=== PATIENT | female | born 1990 | race Caucasian/White ===

== ENCOUNTER 2024-11-16 17:28 | Emergency (ER) | payer OTHER, SELFPAY ==
--- NOTE | ~2024-11-16 | XR_ITS ---
XR tibia fibula LT 2V Ordering provider: Mita Gunter NP History: . FALL ON HYPEREXTENDED FOOT, GENERALIZED LATERAL PAIN . Comparison: None. FINDINGS: BONES: No acute fracture or dislocation. JOINT SPACES: Normal. SOFT TISSUES: Normal. Calcaneus spur. IMPRESSION: No acute osseous abnormality left leg. Reviewed, dictated and finalized at location A.
--- OUTSIDE RECORDS SUMMARY | 2024-11-16 17:30 | XMS_ITS | Referral Summary ---
Author Organization [facility] Virtual Care Address [address] [place] [id number] Phone Care Team Providers Care Telecommunications Administrator Name Role Phone Nuris Holguin JONAH Primary Care Provider +1- [phone] Encounters Date Type Department Care Team Description 09/02/2024 8:17 AM MILLER HELPER - 09/02/2024 9:47 AM [facility] Emergency [facility] Emergency Department 1 [place] [address] Dm Madden MD Renal colic on left side (Primary Dx) Discharge Disposition: Discharge to home or self care from Last 3 Months Allergies Active Allergy Reactions Criticality Noted Date Comments Amoxicillin Other (See comments) Reaction: red bumps, Hydrocodone Nausea only Reaction: nausea, Sulfanilamide Hives Reaction: Hives, Medications methylPREDNISolone (MEDROL DOSEPACK) 4 mg tablet Take as directed on package. 21 tablet 7 Active ondansetron ODT (ZOFRAN-ODT) 8 mg disintegrating tablet Take 1 tablet (8 mg total) by mouth every 8 (eight) hours as needed for nausea or vomiting 30 tablet 4 Active Active Problems Problem Noted Date Diagnosed Date Asthma 01/19/2014 Overview (12/08/2016): Asthma Immunizations Immunization Administration Dates Next Due DTaP 11/22/1994, 1,05/29/1990,03/14 HPV, Quadrivalent 03/14/2009,06/05/2007,03/20/20 07 Hep A, Adult 09/13/2011,01/20/2011 Hep B Vaccine 07/23/1998,12/25/1997,11/26/1997 Hib (HbOC) 03/05/1991,12/25/1990,08/21/1990 IPV 11/22/1994, 1,03/14/1990,01/11 MMR 11/22/1994,03/05/1991 Meningococcal Polysaccharide (Menomune) 03/05/2009 Td, adsorbed 12/12/1999 Tdap 03/20/2007 Varicella 03/18/2011 Social History Tobacco Use Types Packs/Day Years Used Date Smoking Tobacco: Never Smokeless Tobacco: Never Alcohol Use Standard Drinks/Week Comments Yes 0 (1 standard drink = 0.6 oz pur e alcohol) Personal Safety Answer Date Recorded Have you ever been in or are you currently in a harmful physical or emotional relationship or is someone making you feel afraid or unsafe? Denies 09/02/2024 Comments Unknown Sex and Gender Information Value Date Recorded Sex Assigned at Not on file Legal Sex Female 4:14 AM MILLER HELPER Gender Identity Not on file Sexual Orientation Not on file Last Filed Vital Signs Vital Sign Reading Time Taken Comments Blood Pressure 116/82 09/02/2024 9:30 AM MILLER HELPER Pulse 79 09/02/2024 9:30 AM MILLER HELPER Temperature 37.2 C (99 F) 09/02/2024 12:33 AM MILLER HELPER Respiratory Rate 18 09/02/2024 12:33 AM MILLER HELPER Oxygen Saturation 95% 09/02/2024 9:30 AM MILLER HELPER Inhaled Oxygen Concentration - - Weight 99.8 kg (220 lb) 09/02/2024 12:33 AM MILLER HELPER Height 170.2 cm (5' 7 ) 09/02/2024 12:33 AM MILLER HELPER Body Mass Index 34.46 09/02/2024 12:33 AM MILLER HELPER Plan of Treatment Not on file Procedures Procedure Name Priority Date/Time Associated Diagnosis Comments POCT HCG, URINE Routine 09/02/2024 1:26 AM MILLER HELPER EGFR STAT 09/02/2024 12:41 AM MILLER HELPER URINALYSIS, MICROSCOPIC ONLY STAT 09/02/2024 12:41 AM MILLER HELPER DIFFERENTIAL AUTO STAT 09/02/2024 12: 41 AM MILLER HELPER LIPASE STAT 09/02/2024 12:41 AM MILLER HELPER COMPREHENSIVE METABOLIC PANEL STAT 09/02/2024 12:41 AM MILLER HELPER CBC WITH AUTO DIFFERENTIAL STAT 09/02/2024 12:41 AM MILLER HELPER URINALYSIS AND REFLEX TO MICROSCOPIC AND CULTURE STAT 09/02/2024 12:41 AM MILLER HELPER from Last 3 Months Results * POCT hCG, urine (09/02/2024 1:26 AM MILLER HELPER) HCG, ur, POC Negative Negative Lot Number [id number] QC Backgroud Clear Acceptable QC Control Line Acceptable Urine 09/02/2024 1:26 AM MILLER HELPER Biju Mccormack MD POINT OF CARE TEST ORDERABLES Final Result * eGFR (09/02/2024 12:41 AM MILLER HELPER) eGFR >90 >=60 mL/min/1. 73 m2 Comment: Interpretive Data Reference Interval Normal >/= 90 mL/min/1.73m2 Mildly decreased* 60 - 89 mL/min/1.73m2 Mildly to moderately decreased 45 - 59 mL/min/1.73m2 Moderately to severely decreased 30 - 44 mL/min/1.73m2 Severely decreased 15 - 29 mL/min/1.73m2 Kidney Failure < 15 mL/min/1.73m2 *Relative to young adult level Estimated glomerular filtration rate is determined by the 2020 CKD-EPI equation recommended by the National Kidney Foundation (A Unifying Approach to GFR Estimation: Recommendations of the NKF-ASK Task Force on Reassessing the Inclusion of Race in Diagnosing Kidney Disease, JASN 2020). The CKD-EPI equation should not be used for patients with unstable renal function and has not been validated in children and those over 70. Current interpretive data was last reviewed 2021. Blood 09/02/2024 12:4 1 AM MILLER HELPER 09/02/2024 12:50 AM MILLER HELPER us Biju Mccormack MD LAB BLOOD ORDERABLES Final Re sult [facility] ([place]) 1 [facility] [place] [address] * (ABNORMAL) Differential, auto (09/02/2024 12:41 AM MILLER HELPER) Neutrophil abs 4.8 1.5 - 6.5 K/cumm Imm gran abs 0.0 0.0 - 0.1 K/cumm [facility] ([place]) Lymphocyte abs 4.8(H) 0.8 - 3.3 K/cumm [facility] ([place]) Monocyte abs 0.8 0.2 - 0.8 K/cumm [facility] ([place]) Eosinophil abs 0.2 0.0 - 0.5 K/cumm [facility] ([place]) Basophil abs 0.1 0.0 - 0.1 K/cumm [facility] ([place]) Neutrophil pct 44.5 % [facility] ([place]) Comment: Interpretive Data Percent cell count reference ranges are not reported, since discordance with absolute values may lead to misinterpretation of CBC data. Current Interpretive Data was last revised on 2017. Imm gran pct 0.3 % [facility] ([place]) Comment: Interpretive Data Percent cell count reference ranges are not reported, since discordance with absolute values may lead to misinterpretation of CBC data. Current Interpretive Data was last revised on 2017. Lymphocyte pct 44.6 % [facility] ([place]) Comment: Interpretive Data Percent cell count reference ranges are not reported, since discordance with absolute values may lead to misinterpretation of CBC data. Current Interpretive Data was last revised on 2017. Monocyte pct 7.9 % [facility] ([place]) Comment: Interpretive Data Percent cell count reference ranges are not reported, since discordance with absolute values may lead to misinterpretation of CBC data. Current Interpretive Data was last revised on 2017. Eosinophil pct 2.2 % [facility] ([place]) Comment: Interpretive Data Percent cell count reference ranges are not reported, since discordance with absolute values may lead to misinterpretation of CBC data. Current Interpretive Data was last revised on 2017. Basophil pct 0.5 % [facility] ([place]) Comment: Interpretive Data Percent cell count reference ranges are not reported, since discordance with absolute values may lead to misinterpretation of CBC data. Current Interpretive Data was last revised on 2017. Blood 09/02/2024 12:4 1 AM MILLER HELPER 09/02/2024 12:50 AM MILLER HELPER us Biju Mccormack MD LAB BLOOD ORDERABLES Final Re sult [facility] ([place]) 1 [facility] [place] [address] * (ABNORMAL) Urinalysis reflex to microscopic and culture Urine (09/02/2024 12:41 AM MILLER HELPER) Color, ur Dark-Yellow Clarity, ur Turbid(A) Clear [facility] ([place]) Specific gravity, ur 1.035(H) 1.003 - 1.030 [facility] ([place]) pH, urine 6.0 [facility] ([place]) Comment: Interpretive Data U rine pH is affected by diet, medications, systemic acid-base disturbances, and renal tubular function. pH may affect urinary stone formation. For example, urine pH below 6.0 may help reduce the tendency for calcium phosphate stones and pH greater than 6.0 may reduce the tendency for uric acid stone formation. Source: [facility] Current Interpretive Data was last revised on 2017 Protein, ur ql 1+(A) Negative [facility] ([place]) Glucose, ur ql Negative Negative [facility] ([place]) Ketones, ur Negative Negative [facility] ([place]) Bilirubin, ur 1+(A) Negative [facility] ([place]) Blood, ur 3+(A) Negative [facility] ([place]) Urobilinogen, ur 2.0(A) <2.0 mg/dL [facility] ([place]) Nitrite, ur Positive(A) Negative [facility] ([place]) Leukocyte esterase, ur Negative Negative [facility] ([place]) UA reflex comment Reflex to microscopic UA will be performed. [facility] ([place]) Urine 09/02/2024 12:4 1 AM MILLER HELPER 09/02/2024 1:04 AM MILLER HELPER Biju Mccormack MD LAB MICROBIOLOGY - GENERAL OR DERABLES Final Result Performing Organization Address City/[facility] Co de Phone Number [facility] ([place]) 1 [facility] [place] [address] * (ABNORMAL) CBC with auto differential (09/02/2024 12:41 AM MILLER HELPER) WBC 10.7(H) 3.8 - 9.9 K/cumm Hgb 13.4 11.9 - 15.5 g/dL [facility] ([place]) Hct 40.1 35.6 - 45.5 % [facility] ([place]) Plt 303 150 - 400 K/cumm [facility] ([place]) MPV 11.4 9.1 - 12.3 fL [facility] ([place]) RBC 4.47 3.90 - 5.20 M/cumm [facility] ([place]) MCV 89.7 81.3 - 96.4 fL [facility] ([place]) MCH 30.0 27.1 - 33.3 pg [facility] ([place]) MCHC 33.4 32.3 - 35.7 g/dL [facility] ([place]) RDW CV 12.4 11.1 - 14.9 % [facility] ([place]) RDW SD 40.3 35.7 - 48.1 fL [facility] ([place]) NRBC abs 0.00 0.00 - 0.01 K/cumm [facility] ([place]) Blood 09/02/2024 12:4 1 AM MILLER HELPER 09/02/2024 12:50 AM MILLER HELPER us Biju Mccormack MD LAB BLOOD ORDERABLES Final Re sult Performing Organization Address City/State/[facility] Co de Phone Number [facility] ([place]) 1 [place] [address] * (ABNORMAL) Urinalysis, microscopic only (09/02/2024 12:41 AM MILLER HELPER) WBC, ur 6-10(A) 0 - 5 /HPF RBC, ur >50(A) 0 - 2 /HPF [facility] ([place]) Epithelial cells, squamous, ur 1-5 0 - 5 /HPF [facility] ([place]) Bacteria, ur Trace(A) [facility] ([place]) Mucous, ur Present(A) [facility] ([place]) Culture Reflex Comment Reflex conditions for urine culture (WBC >10) not met. [facility] ([place]) Urine 09/02/2024 12:4 1 AM MILLER HELPER 09/02/2024 1:04 AM MILLER HELPER Biju Mccormack MD LAB URINE ORDERABLES Final Re sult Performing Organization Address [facility] Co de Phone Number [facility] ([place]) [address] [place] [address] * Lipase (09/02/2024 12:41 AM MILLER HELPER) Pathologist [facility] Lipase 46 10 - 99 Units/L Blood 09/02/2024 12:4 1 AM MILLER HELPER 09/02/2024 12:50 AM MILLER HELPER Biju Mccormack MD LAB BLOOD ORDERABLES Final Re sult Performing Organization Address [facility] Co de Phone Number [facility] ([place]) 1 [facility] [place] [address] * (ABNORMAL) Comprehensive metabolic panel (09/02/2024 12:41 AM MILLER HELPER) [facility] Sodium 136 135 - 145 mmol/L Potassium, pl 4.1 3.3 - 4.9 mmol/L [facility] ([place]) Comment:Moderately Hemolyzed Specimen. Results may be affected. Chloride 101 97 - 110 mmol/L [facility] ([place]) CO2 21(L) 22 - 32 mmol/L [facility] ([place]) Anion gap 14 2 - 15 mmol/L [facility] ([place]) BUN 17 6 - 25 mg/dL [facility] ([place]) Creatinine 0.59(L) 0.60 - 1.10 mg/dL [facility] ([place]) Glucose 121 70 - 199 mg/dL [facility] ([place]) Comment: Interpretive Data Fasting glucose >/= 126 mg/dl is diagnostic for diabetes. Fasting is defined as no caloric intake for at least 8 hours. Fasting glucose between 100 mg/dl to 125 mg/dl is diagnostic of prediabetes. In a patient with classic symptoms of hyperglycemia or hyperglycemic crisis, a random glucose >/= 200 mg/dl is diagnostic for diabetes. In the absence of unequivocal hyperglycemia, results should be confirmed by repeat testing. The classification and Diagnosis of Diabetes Diabetes Care 2021; 46: S19-S40. Current interpretive data was last revised 2022. Calcium 9.6 8.5 - 10.3 mg/dL [facility] ([place]) Bilirubin, total <0.2 0.1 - 1.2 mg/dL [facility] ([place]) Protein, pl 7.1 6.5 - 8.5 g/dL [facility] ([place]) Albumin 4.1 3.5 - 5.0 g/dL [facility] ([place]) Alk phos 200(H) 40 - 130 Units/L [facility] ([place]) ALT 37 7 - 45 Units/L [facility] ([place]) Comment: Hemolysis present. Results may be affected. Moderately Hemolyzed Specimen AST 46(H) 10 - 45 Units/L [facility] ([place]) Comment: Hemolysis present. Results may be affected. Moderately Hemolyzed Specimen Blood 09/02/2024 12:4 1 AM MILLER HELPER 09/02/2024 12:50 AM MILLER HELPER us Biju Mccormack MD LAB BLOOD ORDERABLES Final Re sult [facility] ([place]) 1 [facility] Department [place] [address] from Last 3 Months Insurance [facility] [employer] [facility] Care Teams Telecommunications Administrator Relationship Specialty Start Date End Date Nuris Holguin NP PCP - General Internal Medicine 09/02/24
--- OUTSIDE RECORDS SUMMARY | 2024-11-16 17:30 | XMS_ITS | Clinical Summary ---
Author Organization [facility] Virtual Care Address [address] [place] [phone] Phone Care Team Providers Care Body Mechanic Apprentice Name Role Phone Nuris Holguin JONAH Primary Care Provider +1- [phone] Allergies Active Allergy Reactions Criticality Noted Date [...] Diagnosed Date Asthma 01/19/2014 Overview (12/08/2016): Asthma Encounters Date Type Department Care Team Description 09/02/2024 8:17 AM ROLL OUT MANAGER - 09/02/2024 9:47 AM ROLL OUT MANAGER Emergency [facility] Emergency Department 1 [place] [address] Dm Madden MD Renal colic on left side (Primary Dx) Discharge Disposition: Discharge to home or self care from Last 3 Months Immunizations Immunization Administration Dates Next Due DTaP 11/22/1994, 1,05/29/1990,03/14 HPV, Quadrivalent 03/14/2009,06/05/2007,03/20/20 07 Hep A, Adult 09/13/2011,01/20/2011 Hep B Vaccine 07/23/1998,12/25/1997,11/26/1997 Hib (HbOC) 03/05/1991,12/25/1990,08/21/1990 IPV 11/22/1994, 1,03/14/1990,01/11 MMR 11/22/1994,03/05/1991 Meningococcal Polysaccharide (Menomune) 03/05/2009 Td, adsorbed 12/12/1999 Tdap 03/20/2007 Varicella 03/18/2011 Surgical History Surgery Date Site/Laterality Comments OTHER SURGICAL HISTORY 2006 (HAIR TORNIQUET): ISCHEMIC R LABIA MINORA DEBRIDED OTHER SURGICAL HISTORY peritonsillar abscess: drained Medical History Medical History Date Comments Hx Other Medical (HAIR TORNIQUET ) Hx Other Medical 2012 peritonsillar a bscess Family History Medical History Relation Name Comments Coronary artery disease Father Mauricio nary artery disease, premature; Hyperlipidemia Father Hyperlipidemi a; Hypertension Mother Hypertension; Migraines Mother Migraines; Asthma Other Asthma; Alzheimer's disease Paternal Grandfather Alzheimer's Disease; Seizures Sister Seizure disorde r; Relation Name Status Comments Father Mother Other Paternal Grandfather Sister Social History Tobacco Use Types Packs/Day Years [...] on file Legal Sex Female 4:14 AM ROLL OUT MANAGER Gender Identity Not on file Sexual Orientation Not on file Obstetrics History Last Filed Vital Signs Vital Sign Reading Time Taken Comments Blood Pressure 116/82 09/02/2024 9:30 AM ROLL OUT MANAGER Pulse 79 09/02/2024 9:30 AM ROLL OUT MANAGER Temperature 37.2 C (99 F) 09/02/2024 12:33 AM ROLL OUT MANAGER Respiratory Rate 18 09/02/2024 12:33 AM ROLL OUT MANAGER Oxygen Saturation 95% 09/02/2024 9:30 AM ROLL OUT MANAGER Inhaled Oxygen Concentration - - Weight 99.8 kg (220 lb) 09/02/2024 12:33 AM ROLL OUT MANAGER Height 170.2 cm (5' 7 ) 09/02/2024 12:33 AM ROLL OUT MANAGER Body Mass Index 34.46 09/02/2024 12:33 AM ROLL OUT MANAGER Plan of Treatment Health Maintenance Due Date Last Done Comments Cervical Cancer Screening 1989 Depression Screening 1989 Hepatitis C Screening 1989 Regular Well Visit/Exam 18-64 11/21/2007 Varicella Vaccines (2 of 2 - 13+ 2-dose series) 04/15/2011 03/18/2011 Zoster Vaccine (1 of 2) 05/13/2011 Pneumococcal vaccine <65 (2 of 2 - PCV) 05/27/2017 05/27/2016 Covid-19 Vaccine (3 - Pfizer risk series) 05/15/2021 04/17/2021, 03/27/2021 DTaP/Tdap/Td Vaccine (9 - Td or Tdap) 12/19/2030 12/19/2020, 04/30/2019, 09/06/2011, Additional history exists Hepatitis B Screening Completed 07/23/1998 , 12/25/1997, 11/26/1997 HPV Vaccines Completed 03/14/2009, 09/2006, 03/20/2007 Influenza Vaccine Completed 06/01/2024, , 06/13/2020, Additional history exists Procedures Procedure Name Priority Date/Time Associated Diagnosis Comments POCT HCG, URINE Routine 09/02/2024 1:26 AM ROLL OUT MANAGER EGFR STAT 09/02/2024 12:41 AM ROLL OUT MANAGER URINALYSIS, MICROSCOPIC ONLY STAT 09/02/2024 12:41 AM ROLL OUT MANAGER DIFFERENTIAL AUTO STAT 09/02/2024 12: 41 AM ROLL OUT MANAGER LIPASE STAT 09/02/2024 12:41 AM ROLL OUT MANAGER COMPREHENSIVE METABOLIC PANEL STAT 09/02/2024 12:41 AM ROLL OUT MANAGER CBC WITH AUTO DIFFERENTIAL STAT 09/02/2024 12:41 AM ROLL OUT MANAGER URINALYSIS AND REFLEX TO MICROSCOPIC AND CULTURE STAT 09/02/2024 12:41 AM ROLL OUT MANAGER from Last 3 Months Results * POCT hCG, urine (09/02/2024 1:26 AM ROLL OUT MANAGER) HCG, ur, POC Negative Negative Lot Number [id number] QC Backgroud Clear Acceptable QC Control Line Acceptable Urine 09/02/2024 1:26 AM ROLL OUT MANAGER Biju Mccormack MD POINT OF CARE TEST ORDERABLES Final Result * eGFR (09/02/2024 12:41 AM ROLL OUT MANAGER) eGFR >90 >=60 mL/min/1. 73 m2 Comment: [...] reviewed 2021. Blood 09/02/2024 12:4 1 AM ROLL OUT MANAGER 09/02/2024 12:50 AM ROLL OUT MANAGER Biju Mccormack MD LAB BLOOD ORDERABLES Final Re sult [facility] [place]) 1 [facility] Department [place] [address] * (ABNORMAL) Differential, auto (09/02/2024 12:41 AM ROLL OUT MANAGER) Neutrophil abs 4.8 1.5 - 6.5 K/cumm Imm gran abs 0.0 0.0 - 0.1 K/cumm [facility] ([place]) Lymphocyte abs 4.8(H) 0.8 - 3.3 K/cumm [facility] ([place]) Monocyte abs 0.8 0.2 - 0.8 K/cumm [facility] ([place]) Eosinophil abs 0.2 0.0 - 0.5 K/cumm [facility] ([place]) Basophil abs 0.1 0.0 - 0.1 K/cumm [...] on 2017. Blood 09/02/2024 12:4 1 AM ROLL OUT MANAGER 09/02/2024 12:50 AM ROLL OUT MANAGER us Biju Mccormack MD LAB BLOOD ORDERABLES Final Re sult Performing Organization Address City/[facility]/ZIP Co de Phone Number [facility] ([place]) 1 [facility] Department [place] [address] * (ABNORMAL) Urinalysis reflex to microscopic and culture Urine (09/02/2024 12:41 AM ROLL OUT MANAGER) Color, ur Dark-Yellow Clarity, ur Turbid(A) Clear [...] tendency for uric acid stone formation. Source: [facility] [employer] Current Interpretive Data was last revised on [...] [facility] ([place]) Urine 09/02/2024 12:4 1 AM ROLL OUT MANAGER 09/02/2024 1:04 AM ROLL OUT MANAGER us Biju Mccormack MD LAB MICROBIOLOGY - GENERAL OR DERABLES Final Result [facility] ([place]) 1 [facility] Department [place] [address] * (ABNORMAL) CBC with auto differential (09/02/2024 12:41 AM ROLL OUT MANAGER) Pathologist [facility] WBC 10.7(H) 3.8 - 9.9 K/cumm Hgb [...] [facility] ([place]) Blood 09/02/2024 12:4 1 AM ROLL OUT MANAGER 09/02/2024 12:50 AM ROLL OUT MANAGER us Biju Mccormack MD LAB BLOOD ORDERABLES Final Re sult [facility] ([place]) 1 [facility] Department [place] [address] * (ABNORMAL) Urinalysis, microscopic only (09/02/2024 12:41 AM ROLL OUT MANAGER) [facility] WBC, ur 6-10(A) 0 - 5 /HPF RBC, ur >50(A) 0 - 2 /HPF [facility] ([place]) Epithelial cells, squamous, ur 1-5 0 - 5 /HPF [facility] ([place]) Bacteria, ur Trace(A) [facility] ([place]) Mucous, ur Present(A) [facility] ([place]) Culture Reflex Comment Reflex conditions for urine culture (WBC >10) not met. [facility] ([place]) Urine 09/02/2024 12:4 1 AM ROLL OUT MANAGER 09/02/2024 1:04 AM ROLL OUT MANAGER Biju Mccormack MD LAB URINE ORDERABLES Final Re sult Performing Organization Address [facility] Co de Phone Number [facility] ([place]) 1 [facility] [place] [address] * Lipase (09/02/2024 12:41 AM ROLL OUT MANAGER) Pathologist [facility] Lipase 46 10 - 99 Units/L Blood 09/02/2024 12:4 1 AM ROLL OUT MANAGER 09/02/2024 12:50 AM ROLL OUT MANAGER Biju Mccormack MD LAB BLOOD ORDERABLES Final Re sult Performing Organization Address [facility] de Phone Number [facility] ([place]) 1 [facility] [employer] [place] [address] * (ABNORMAL) Comprehensive metabolic panel (09/02/2024 12:41 AM ROLL OUT MANAGER) Sodium 136 135 - 145 mmol/L Potassium, pl 4.1 3.3 - 4.9 mmol/L [facility] ([place]) Comment:Moderately Hemolyzed Specimen. Results may be affected. Chloride 101 97 - 110 mmol/L [facility] ([place]) CO2 21(L) 22 - 32 mmol/L [facility] ([place]) Anion gap 14 2 - 15 mmol/L [facility] ([place]) BUN 17 6 - 25 mg/dL [facility] ([place]) Creatinine 0.59(L) 0.60 - 1.10 mg/dL [facility] ([place]) Glucose 121 70 - 199 mg/dL [facility] ([place]) Comment: Interpretive Data Fasting glucose >/= [...] Hemolyzed Specimen Blood 09/02/2024 12:4 1 AM ROLL OUT MANAGER 09/02/2024 12:50 AM ROLL OUT MANAGER us Biju Mccormack MD LAB BLOOD ORDERABLES Final Re sult [facility] ([place]) 1 [facility] Department [place] [address] from Last 3 Months Insurance [facility] [employer] [facility] Care Teams Body Mechanic Apprentice Relationship Specialty Start Date End Date Nuris Holguin NP PCP - General Internal Medicine 09/02/24
--- OUTSIDE RECORDS SUMMARY | 2024-11-16 17:30 | XMS_ITS | Clinical Summary ---
Author Organization [facility] Address [address] [place]: Epic Prelude ADT HENRY GUZMAN [id number] Care Team Providers Care Falafel Cart Cook Name Role Phone Unavailable Primary Care Provider Unavailabl e Allergies No known active allergies Medications No known medications Encounters Date Type Department Care Team Description 10/26/2024 1:00 PM EQUIPMENT LEAD Telephone [facility] Medicine at the [facility] [address] [place] [address] Yokasta Vazquez RN [facility] from Last 3 Months Immunizations Immunization Administration Dates Next Due Influenza Seasonal Unspecified Formulation IM Social History Tobacco Use Types Packs/Day Years Used Date Smoking Tobacco: Never Assessed Comments Unknown Sex and Gender Information Value Date Recorded Sex Assigned at Not on file Legal Sex Female 7:57 AM CDT Gender Identity Not on file Sexual Orientation Not on file Plan of Treatment Health Maintenance Due Date Last Done Comments CERVICAL CANCER SCREENING 11/21/2019 COVID-19 Vaccine (2023-2 5 season) 2024 10/21/2021, 04/17/2021, 03/27/2021 DTAP/TDAP/TD VACCINES (9 - T d or Tdap) 12/19/2030 12/19/2020, 04/30/2019, 09/06/2011, Additional history exists HEPATITIS B VACCINES Completed 07/23/1998, 12/25/1997, 11/26/1997 HPV VACCINES Completed 03/14/2009, 09/2006, 03/20/2007 INFLUENZA VACCINE Completed 06/01/2024, , 06/13/2020, Additional history exists Insurance [facility] Address: [facility] [id number] [place] [address]
[2024-11-16 17:34] VITALS: BP 133/75; PULSE 97; RESP 20; TEMP 36.5; O2SAT 97
--- NOTE | 2024-11-16 17:38 | ED_ITS ---
HPI - Extremity Injury (Lower) General Chief Complaint: Extremity Injury, Lower Stated Complaint: Left leg injury Time Seen by Provider: 11/16/24 17:40 Source: patient and RN notes reviewed Mode of arrival: ambulatory Limitations: no limitations History of Present Illness HPI Narrative: 33-year-old female presents with concern for left leg pain. Reports an hour and half ago she was swinging about 3 ft in the air, the swing broke and she fell onto the ground landing on her left leg. She reports pain to the mid leg down to the ankle. She reports pain with flexion of the ankle, weight-bearing, pressure. She took ibuprofen complaint: leg injury Related Data Home Medications ?Medication ?Instructions ?Recorded ?Confirmed ?Last Taken ?Type escitalopram oxalate 5 mg tablet mg 11/16/24 Unknown History Allergies Allergy/AdvReac Type Severity Reaction Status Date / Time No Known Allergies Allergy Verified 11/16/24 17:42 Review of Systems Review of Systems: CONSTITUTIONAL: Denies malaise, chills, sweats, or fever. SKIN: Denies rash or itching, open skin, laceration, abrasion, redness, warmth, swelling. MUSCULOSKELETAL: Reports left leg pain NEUROLOGIC: Denies numbness, weakness All systems reviewed & are unremarkable except as noted in HPI and below PMFSH Surgical History Surgical History History of ankle surgery (~2020) Family History Family History Mother Hypertension Father Depression Anxiety Sibling No problems noted. Social History Social History Smoking status: Never smoker Comments At time of signature, agree with nursing past medical, surgical, social and family history. There is no relevant family history pertinent to the presenting complaint Exam Narrative: GENERAL: Well-appearing, well-nourished, and in no acute distress. HEAD: Normocephalic, atraumatic. EYES: PERRLA, conjunctivae clear NECK: Supple. CHEST: Speaks in full sentences. No respiratory distress. HEART: Regular rate and rhythm. Normal and equal peripheral pulses. EXTREMITIES: Left lower leg has grossly normal strength and sensation, limited range of motion likely due to pain. Mild lateral ankle edema without ecchymosis. Normal sensation with sensitivity to light touch and pain. General ankle and lateral leg tenderness. No open wounds, no skin tenting, no devitalized tissue or atrophy, no trophic changes, no obvious deformity, alignment normal, nearby joints and structures intact. Distal pulses palpable and equal bilaterally, skin warm, dry, pink. Capillary refill less than 3 seconds. SKIN: Warm, dry, no rash. NEURO: Alert and oriented x3. PSYCH: Normal mood and affect Course Course Emergency Course: Patient is aware of diagnosis, understands and agrees to treatment plan. Anticipatory guidance given. Patient agrees to follow-up as directed and is aware of reasons to seek care at the emergency department. Portions of this record may have been created with voice recognition software Level of Care: Express Care Visit Vital Signs Vital signs: Reviewed. MDM - Extremity Injury (Lower) MDM Narrative Medical decision making narrative: Patients injury and pain is consistent with musculoskeletal etiology. No signs of neurological or vascular compromise on exam. Compartments and tissues are soft without signs of compartment syndrome. Pain is felt appropriate for further evaluation on an outpatient basis. Imaging Data Radiologist's impression: XR tibia fibula LT 2V Ordering provider: Mita Gunter NP History: . FALL ON HYPEREXTENDED FOOT, GENERALIZED LATERAL PAIN . Comparison: None. FINDINGS: BONES: No acute fracture or dislocation. JOINT SPACES: Normal. SOFT TISSUES: Normal. Calcaneus spur. IMPRESSION: No acute osseous abnormality left leg. Critical Care Time Critical Care Time Critical Care Time: No Discharge Plan Discharge Clinical Impression: Leg injury Patient Disposition: Home, Self-Care Condition: Stable Instructions: Leg Sprain (ED) Additional Instructions: Avoid activities that cause pain until the pain subsides. Ice to the area 20-30 minutes 4-6 times a day Elevate above heart Elastic wrap as directed for comfort for the next 5-7 days Crutches as directed if needed Tylenol for lesser pain Ibuprofen regularly for the next 2-3 days for the inflammation Follow up with your primary care provider if the condition is not improving within 1 week. If the condition worsens with numbness, tingling, decrease sensation with weakness seek treatment in the emergency room immediately. Patient Language: Mongolian Prescriptions: No Action escitalopram oxalate 5 mg tablet Follow-up/Referrals: PHYSICIAN,REVENUE ENFORCEMENT COLLECTION AGENT [Primary Care Provider] - Yao Hopkins MD [Physician] - Time of Disposition: 18:15
== END 2024-11-16 18:17 | disposition home or self-care (01) ==
PROVIDERS: Emergency Provider Nurse Practitioner
DX: S89.92XA Unspecified injury of left lower leg, initial encounter (principal); W09.1XXA Fall from playground swing, initial encounter
CPT/HCPCS: 73590; 99213; G0463

== ENCOUNTER 2024-12-26 08:00 | Outpatient (CLI) | payer OTHER, SELFPAY ==
--- OUTSIDE RECORDS SUMMARY | 2024-12-26 08:11 | XMS_ITS | Clinical Summary ---
Author Organization [facility] Address [address] Bolden: Epic Prelude ADT [place] [address] Care Team Providers Care Test Lead Name Role Phone Unavailable Primary Care Provider Unavailabl e Allergies No known active allergies Medications escitalopram oxalate (LEXAPRO) 10 mg tablet Take one tablet (10mg) by mouth once daily 90 Tablet 1 12/17/2024 7:03 PM CDT 12/17/2024 Active Encounters Date Type Department Care Team Description 10/26/2024 1:00 PM ARCADE ATTENDANT Telephone [facility] Medicine at the [facility] [address] [place], [place] [id number] Yokasta Vazquez RN MC[facility] from Last 3 [...] Health Maintenance Due Date Last Done Comments Pre-Diabetes and Diabetes Screening 1989 HPV/Cotest (21-29) 2010 CERVICAL CANCER SCREENING 11/21/2019 HPV/Cotest (30-65) 11/21/2019 PAP SMEAR 11/21/2019 COVID-19 Vaccine (2023-2 5 season) 2024 10/21/2021, 04/17/2021, 03/27/2021 DTAP/TDAP/TD VACCINES (9 - T d or Tdap) 12/19/2030 12/19/2020, 04/30/2019, 09/06/2011, Additional history exists HEPATITIS B VACCINES Completed 07/23/1998, 12/25/1997, 11/26/1997 HPV VACCINES Completed 03/14/2009, 09/2006, 03/20/2007 INFLUENZA VACCINE Completed 06/01/2024, , 06/13/2020, Additional history exists Insurance RX [employer] Member Subscriber Plan / Payer (Ef fective 2024-Present) Name:Kaci Dove Relation to Subscriber:Not on file Name:Kaci Dove Subscriber ID:Not on file Date of :1990 Payer ID:Not on file Type:Not on file Address: [address] [employer] [employer]
--- OUTSIDE RECORDS SUMMARY | 2024-12-26 08:11 | XMS_ITS | Clinical Summary ---
Author Organization [facility] Virtual Care Address [address] [place] [phone] Phone Care Team Providers Care Data Management Engineer Name Role Phone Nuris Holguin RECEIVING WORKER Primary Care Provider +1- [phone] Allergies Active Allergy Reactions Criticality Noted Date [...] on file Legal Sex Female 4:14 AM PRECIPITATOR OPERATOR Gender Identity Not on file Sexual Orientation Not on file Obstetrics History Last Filed Vital Signs Vital Sign Reading Time Taken Comments Blood Pressure 116/82 09/02/2024 9:30 AM PRECIPITATOR OPERATOR Pulse 79 09/02/2024 9:30 AM PRECIPITATOR OPERATOR Temperature 37.2 C (99 F) 09/02/2024 12:33 AM PRECIPITATOR OPERATOR Respiratory Rate 18 09/02/2024 12:33 AM PRECIPITATOR OPERATOR Oxygen Saturation 95% 09/02/2024 9:30 AM PRECIPITATOR OPERATOR Inhaled Oxygen Concentration - - Weight 99.8 kg (220 lb) 09/02/2024 12:33 AM PRECIPITATOR OPERATOR Height 170.2 cm (5' 7 ) 09/02/2024 12:33 AM PRECIPITATOR OPERATOR Body Mass Index 34.46 09/02/2024 12:33 AM PRECIPITATOR OPERATOR Plan of Treatment Health Maintenance Due Date [...] 06/01/2024, , 06/13/2020, Additional history exists Insurance [facility] Care Teams Data Management Engineer Relationship Specialty Start Date End Date Nuris Holguin NP PCP - General Internal Medicine 09/02/24
--- OUTSIDE RECORDS SUMMARY | 2024-12-26 08:11 | XMS_ITS | Referral Summary ---
Author Organization [facility] Virtual Care Address [address] [place] [phone] Phone Care Team Providers Care Advertising Sales Executive Name Role Phone Nuris Holguin CANDY WRAPPING MACHINE OPERATOR Primary Care Provider +1- [phone] Allergies Active Allergy Reactions Criticality Noted Date [...] on file Legal Sex Female 4:14 AM INSPECTOR PRODUCTION PLASTIC PARTS Gender Identity Not on file Sexual Orientation Not on file Last Filed Vital Signs Vital Sign Reading Time Taken Comments Blood Pressure 116/82 09/02/2024 9:30 AM INSPECTOR PRODUCTION PLASTIC PARTS Pulse 79 09/02/2024 9:30 AM INSPECTOR PRODUCTION PLASTIC PARTS Temperature 37.2 C (99 F) 09/02/2024 12:33 AM INSPECTOR PRODUCTION PLASTIC PARTS Respiratory Rate 18 09/02/2024 12:33 AM INSPECTOR PRODUCTION PLASTIC PARTS Oxygen Saturation 95% 09/02/2024 9:30 AM INSPECTOR PRODUCTION PLASTIC PARTS Inhaled Oxygen Concentration - - Weight 99.8 kg (220 lb) 09/02/2024 12:33 AM INSPECTOR PRODUCTION PLASTIC PARTS Height 170.2 cm (5' 7 ) 09/02/2024 12:33 AM INSPECTOR PRODUCTION PLASTIC PARTS Body Mass Index 34.46 09/02/2024 12:33 AM INSPECTOR PRODUCTION PLASTIC PARTS Plan of Treatment Not on file Insurance [facility]DA[facility] Care Teams Advertising Sales Executive Relationship Specialty Start Date End Date Nuris Holguin NP PCP - General Internal Medicine 09/02/24
[2024-12-26 19:52] LABS: Bacteria Urine None Seen /hpf; Non Pathogenic Casts 0-2; Squamous Epithelial Cell Urine None Seen /hpf (Few); WBC Urine 0-5 /hpf (0-3)
[2024-12-26 19:58] LABS: Hematocrit 45.1 % (37.0-47.0); Mean Corpuscular Volume 96.8 fl (80-100); Platelet Count Result 246 k/mm3 (150-375); Red Blood Count 4.66 M/mm3 (4.2-5.4); Red Cell Distribution Width 12.8 % (11.5-14.5); White Blood Count 7.8 K/mm3 (4.5-10.0)
[2024-12-26 20:10] LABS: Add Urine Microscopic? YES; Appearance Urine Clear (Clear); Bilirubin Urine Negative (Negative); Blood Urine Negative (Negative); Color Urine Amber (Yellow); Glucose Urine UA Negative (Negative); Ketones Urine Trace mg/dL (Negative); Leukocyte Esterase Ur Trace LEU/UL (Negative); Nitrate Urine Negative (Negative); Protein Urine Negative (Negative); Specific Grav Ur 1.029 (1.001-1.035); pH Urine 5.5 (5.0-9.0)
[2024-12-26 20:59] LABS: Alanine Aminotransferase 26 U/L (6-35); Albumin Level 4.2 g/dL (3.5-5.1); Alkaline Phosphatase 136 U/L (38-126); Anion Gap 10 mmol/L (4-12); Aspartate Amino Transferase 60 U/L (14-36); Bilirubin,Total 0.4 mg/dL (0.2-1.3); Blood Urea Nitrogen 16 mg/dL (7-17); Calcium 9.1 mg/dL (8.4-10.2); Carbon Dioxide 27 mmol/L (22-30); Chloride 102 mmol/L (98-107); Cholesterol 211 mg/dL (0-200); Estimated Glomerular Filt Rate > 60; Glucose 93 mg/dL (65-110); HDL Direct 48 mg/dL; Potassium 4.2 mmol/L (3.4-5.0); Sodium 139 mmol/L (137-145); Triglycerides 224 mg/dL (<150)
[2024-12-26 21:11] LABS: LDL Cholesterol Direct 94 mg/dL
[2024-12-26 21:22] LABS: Vitamin D 25 Hydroxy 37.3 ng/mL
== END 2024-12-26 08:01 | disposition home or self-care (01) ==
LOC: ANHGOSHLAB 08:02
PROVIDERS: PCP Nurse Practitioner; Visit Provider Nurse Practitioner
DX: R31.9 Hematuria, unspecified (principal); E55.9 Vitamin D deficiency, unspecified; Z76.89 Persons encountering health services in other specified circumstances
CPT/HCPCS: 36415; 80053; 80061; 81001; 82306; 84443; 85027

== ENCOUNTER 2025-03-21 08:37 | Outpatient (CLI) | payer OTHER, SELFPAY ==
--- OUTSIDE RECORDS SUMMARY | 2025-03-21 08:39 | XMS_ITS | Referral Summary ---
Author Organization [facility] Virtual Care Address [address] [place] [address] Phone Care Team Providers Care Supervisor Pigment Making Name Role Phone Nuris Holguin JONAH Primary Care Provider +1- [phone] Encounters Date Type Department Care Team Description 02/19/2025 4:04 PM CDT - 02/19/2025 11:59 PM CDT Hospital Encounter [facility] [address] [place] [address] Pre-employment health screening examination Discharge Disposition: Discharge to home or self care 02/19/2025 Orders Only [facility] [address] [facility] [address] (Third Floor) [place] [address] Tavares Mcbride MD Pre-employment health screening examination (Primary Dx) from Last 3 Months Allergies Active Allergy [...] on file Legal Sex Female 4:14 AM FIELD ARTILLERY CREWMEMBER Gender Identity Not on file Sexual Orientation Not on file Last Filed Vital Signs Vital Sign Reading Time Taken Comments Blood Pressure 116/82 09/02/2024 9:30 AM FIELD ARTILLERY CREWMEMBER Pulse 79 09/02/2024 9:30 AM FIELD ARTILLERY CREWMEMBER Temperature 37.2 C (99 F) 09/02/2024 12:33 AM FIELD ARTILLERY CREWMEMBER Respiratory Rate 18 09/02/2024 12:33 AM FIELD ARTILLERY CREWMEMBER Oxygen Saturation 95% 09/02/2024 9:30 AM FIELD ARTILLERY CREWMEMBER Inhaled Oxygen Concentration - - Weight 99.8 kg (220 lb) 09/02/2024 12:33 AM FIELD ARTILLERY CREWMEMBER Height 170.2 cm (5' 7) 09/02/2024 12:33 AM FIELD ARTILLERY CREWMEMBER Body Mass Index 34.46 09/02/2024 12:33 AM FIELD ARTILLERY CREWMEMBER Plan of Treatment Not on file Procedures Procedure Name Priority Date/Time Associated Diagnosis Comments T-SPOT.TB Routine 02/19/2025 1:45 PM CDT Pre-employment health screening examination from Last 3 Months Results * T-SPOT.TB Blood (02/19/2025 1:45 PM CDT) [facility] T-SPOT.TB Negative SeeBelow Comment: Normal Value: Negative A negative test result does not exclude the possibility of exposure to or infection with Mycobacterium tuberculosis (M. tuberculosis). Patients with recent exposure to TB infected individuals exhibiting a negative T-SPOT.TB result should be considered for retesting within 6 weeks or if other relevant clinical symptoms indicate. Results from T-SPOT.TB testing must be used in conjunction with each individual's epidemiological history, current medical status, and results of other diagnostic evaluations. The T-SPOT.TB test is qualitative and results are reported as positive, borderline or negative, given that the test controls perform as expected. In line with the Centers for Disease Control and Prevention's 2010 recommendation to report quantitative measurements alongside the qualitative result, the laboratory provides spot counts for informational purposes only. The T-SPOT.TB test should not be interpreted as a quantitative test. T-SPOT.TB Panel A Spot Count 0 [facility] T-SPOT.TB Panel B Spot Count 0 [facility] T-SPOT.TB Negative Control Passed [facility] T-SPOT.TB Positive Control Passed [facility] Comment: Test Performed at: [facility] [place] [phone] GENO CASTILLO,PHD Blood 02/19/2025 1:45 PM CDT 02/19/2025 6:49 PM CDT Narrative [facility] - 02/21/2025 4:17 PM CDT [facility] TSPOT Patient is employed by/enrolled at:->[facility] Home Care Services us Tavares Mcbride MD LAB MICROBIOLOGY - GENERAL OR DERABLES Final Result [facility] Department [place] [address] from Last 3 Months Insurance [place] [employer] [place] [facility] [employer] [facility] [employer] [place] Care Teams Supervisor Pigment Making Relationship Specialty Start Date End Date Nuris Holguin NP PCP - General Internal Medicine 09/02/24
--- OUTSIDE RECORDS SUMMARY | 2025-03-21 08:39 | XMS_ITS | Clinical Summary ---
Author Organization [facility] Virtual Care Address [address] [place] [address] Phone Care Team Providers Care Feed Mill Lab Technician Name Role Phone Nuris Holguin JONAH Primary Care Provider +1- [phone] Allergies Active Allergy Reactions Criticality Noted Date [...] - 02/19/2025 11:59 PM CDT Hospital Encounter [facility] [address] [place] [address] Pre-employment health screening examination Discharge Disposition: Discharge to home or self care 02/19/2025 Orders Only [facility] [address] [place] [address] Room [address] (Third Floor) [place] [address] Tavares Mcbride MD Pre-employment health screening examination (Primary Dx) from Last 3 Months Immunizations Immunization Administration [...] on file Legal Sex Female 4:14 AM PANEL RAISER OPERATOR Gender Identity Not on file Sexual Orientation Not on file Obstetrics History Last Filed Vital Signs Vital Sign Reading Time Taken Comments Blood Pressure 116/82 09/02/2024 9:30 AM PANEL RAISER OPERATOR Pulse 79 09/02/2024 9:30 AM PANEL RAISER OPERATOR Temperature 37.2 C (99 F) 09/02/2024 12:33 AM PANEL RAISER OPERATOR Respiratory Rate 18 09/02/2024 12:33 AM PANEL RAISER OPERATOR Oxygen Saturation 95% 09/02/2024 9:30 AM PANEL RAISER OPERATOR Inhaled Oxygen Concentration - - Weight 99.8 kg (220 lb) 09/02/2024 12:33 AM PANEL RAISER OPERATOR Height 170.2 cm (5' 7) 09/02/2024 12:33 AM PANEL RAISER OPERATOR Body Mass Index 34.46 09/02/2024 12:33 AM PANEL RAISER OPERATOR Plan of Treatment Health Maintenance Due [...] * T-SPOT.TB Blood (02/19/2025 1:45 PM CDT) [facility] T-SPOT.TB Negative SeeBelow Comment: Normal Value: Negative [...] test. T-SPOT.TB Panel A Spot Count 0 [facility] T-SPOT.TB Panel B Spot Count 0 [facility] T-SPOT.TB Negative Control Passed [facility] T-SPOT.TB Positive Control Passed [facility] Comment: Test Performed at: [facility] [place] [address] GENO CASTILLO,PHD Blood 02/19/2025 1:45 PM CDT 02/19/2025 6:49 PM CDT Narrative [facility] - 02/21/2025 4:17 PM CDT [facility] TSPOT Patient is employed by/enrolled at:->[facility] Home Care Services Tavares Mcbride MD LAB MICROBIOLOGY - GENERAL OR DERABLES Final Result [facility] [place] [address] from Last 3 Months Insurance [facility] [employer] [facility] Member Subscriber Plan / Payer ( fective 2024-Present) Name:Kaci Dove Relation to Subscriber:Self Name:Kaci Dvoe Payer ID:[id number] (NAIC) Type: ALLIANCE Address: [id number] Care Teams Feed Mill Lab Technician Relationship Specialty Start Date End Date Nuris Holguin NP PCP - General Internal Medicine 09/02/24
--- OUTSIDE RECORDS SUMMARY | 2025-03-21 08:39 | XMS_ITS | Clinical Summary ---
Author Organization [facility] Address [address] Bolden: Epic Prelude ADT [place] [address] Care Team Providers Care Auto Body Shop Manager Name Role Phone Unavailable Primary Care Provider Unavailabl e Allergies No known active allergies Medications escitalopram oxalate (LEXAPRO) 10 mg tablet Take one tablet (10mg) by mouth once daily 90 Tablet 1 03/12/2025 5:09 PM CDT 5 Active EPINEPHrine (EPIPEN) 0.3 mg/0.3 mL Auto-Injector INJECT 0.3 MG IN THE MUSCLE A SINGLE DOSE NEEDED FOR ANAPHYLAXIS; MAY REPEAT ONCE 2 Each 12/31/2024 5:10 PM CDT 5 Active predniSONE (DELTASONE) 10 mg tablet Take 6 tablets by mouth daily for 2 days, then 5 tablets daily for 2 days, then 4 tablets daily for 2 days, then 3 tablets daily for 2 days, then 2 tablets daily for 2 days, and then 1 tablet daily for 2 days 42 Tablet 12/31/2024 5:10 PM CDT 5 Active triamcinolone acetonide (KENALOG) 0.1 % Ointment APPLY TOPICALLY TO THE AFFECTED AREA TWICE DAILY 30 Gram 3 12/31/2024 5:10 PM CDT 5 Active ondansetron (ZOFRAN) 4 mg Tablet Take 1 Tablet (4 mg) by mouth every 8 hours as needed for nausea or vomiting. 30 Tablet 5 Active Sodium Fluoride (PreviDent 5000 Booster Plus) 1.1 % Paste USE DIRECTED. 100 mL 5 Active Immunizations Immunization Administration Dates Next Due Influenza [...] (30-65) 11/21/2019 PAP SMEAR 11/21/2019 COVID-19 Vaccine (4 - 2023-2 5 season) 2024 10/21/2021, 04/17/2021, 03/27/2021 INFLUENZA VACCINE (#1) 2025 , 07/20/2023, 06/13/2020, Additional history exists DTAP/TDAP/TD VACCINES (9 - T d or Tdap) 12/19/2030 12/19/2020, 04/30/2019, 09/06/2011, Additional history exists HEPATITIS B VACCINES Completed 07/23/1998, 12/25/1997, 11/26/1997 HPV VACCINES Completed 03/14/2009, 09/2006, 03/20/2007 Insurance RX [employer] Member Subscriber Plan / Payer (Ef fective 2024-Present) Name:Kaci Dove Relation to Subscriber:Not on file Name:Kaci Dove Subscriber ID:Not on file Date of :1990 Payer ID:Not on file Type:Not on file Address: [place] RX [employer]) [facility] [employer]
[2025-03-21 10:19] LABS: Hematocrit 45.0 % (37.0-47.0); Hemoglobin 14.7 g/dL (12.0-15.0); Mean Corpuscular HGB Conc 32.7 g/dl (32-36); Mean Corpuscular Hemoglobin 30.5 pg (26-34); Mean Corpuscular Volume 93.4 fl (80-100); Platelet Count Result 281 k/mm3 (150-375); Red Blood Count 4.82 M/mm3 (4.2-5.4); White Blood Count 7.4 K/mm3 (4.5-10.0)
[2025-03-21 10:40] LABS: Alanine Aminotransferase 24 U/L (6-35); Albumin Level 4.4 g/dL (3.5-5.1); Alkaline Phosphatase 88 U/L (38-126); Anion Gap 9 mmol/L (4-12); Aspartate Amino Transferase 48 U/L (14-36); Bilirubin,Total 0.4 mg/dL (0.2-1.3); Blood Urea Nitrogen 17 mg/dL (7-17); CRP < 0.5 mg/dL (<1.0); Calcium 10.0 mg/dL (8.4-10.2); Carbon Dioxide 25 mmol/L (22-30); Chloride 104 mmol/L (98-107); Estimated Glomerular Filt Rate > 60; Glucose 88 mg/dL (65-110); Potassium 4.6 mmol/L (3.4-5.0); Sodium 138 mmol/L (137-145); Total Protein 7.6 g/dL (6.3-8.2)
[2025-03-21 10:51] LABS: NT Pro B Type Natriuretic Pept < 20 pg/mL (19.9-100); Troponin I 0.046 ng/mL (0.000-0.034)
== END 2025-03-21 08:38 | disposition home or self-care (01) ==
LOC: ANHGOSHLAB 08:38
PROVIDERS: PCP Family Medicine; Visit Provider Nurse Practitioner
DX: R07.9 Chest pain, unspecified (principal)
CPT/HCPCS: 36415; 80053; 83880; 84484; 85027; 85380; 86140